=== PATIENT | male | born 1985 | race Caucasian/White ===

== ENCOUNTER → 2023-07-22 | Emergency (ER) | payer OTHER ==
[~2023-07-22] VITALS: Ht 180.3 cm; Wt 79.4 kg
[~2023-07-22] MED LIST: HORIZANT300 MG PO; MONTELUKAST SODI4 M1 PO; ZOLOFT50 MG PO; ZYRTEC10 M3 PO
== END | disposition left against medical advice (07) ==
LOC: ER 12:37
DX: Z53.21 Procedure and treatment not carried out due to patient leaving prior to being seen by health care provider (principal)